=== PATIENT | male | born 1970 | race Caucasian/White ===

== ENCOUNTER 2017-01-22 17:16 | Emergency (ER) | payer BC ==
[2017-01-23 18:10] VITALS: Wt 56.7 kg
== END 2017-01-22 20:06 | disposition home or self-care (01) ==
LOC: D.ER 17:16
DX: Z20.3 Contact with and (suspected) exposure to rabies (principal)

== ENCOUNTER 2017-01-23 16:47 | Outpatient (CLI) | payer BC ==
[~2017-01-23] VITALS: Ht 167.6 cm; Wt 56.8 kg
[2017-01-23 18:10] VITALS: Ht 167.6 cm; Wt 56.8 kg
== END 2017-01-23 19:00 | disposition home or self-care (01) ==
LOC: D.OPS 16:47
DX: Z23 Encounter for immunization (principal)

== ENCOUNTER 2017-01-25 13:08 | Outpatient (CLI) | payer BC ==
[2017-01-23 18:10] VITALS: BMI 20.2
== END 2017-01-25 13:56 | disposition home or self-care (01) ==
LOC: D.OPS 13:08 → D.MS 13:12 → D.OPS 13:56
DX: Z23 Encounter for immunization (principal)

== ENCOUNTER 2017-01-29 13:55 | Outpatient (CLI) | payer BC ==
[~2017-01-29] VITALS: Ht 167.6 cm; Wt 56.8 kg
[2017-01-29 14:50] VITALS: BP 124/63; Ht 167.6 cm; Wt 56.8 kg
== END 2017-01-29 15:29 | disposition home or self-care (01) ==
LOC: D.OPS 13:55
DX: Z23 Encounter for immunization (principal); Z20.3 Contact with and (suspected) exposure to rabies

== ENCOUNTER → 2017-02-05 19:49 | Outpatient (CLI) | payer BC ==
[~2017-02-05] VITALS: Ht 167.6 cm; Wt 56.8 kg
[2017-02-05 19:04] VITALS: BP 122/75; Ht 167.6 cm; Wt 56.8 kg
== END ==
LOC: D.OPS 17:00
DX: Z23 Encounter for immunization (principal); Z20.3 Contact with and (suspected) exposure to rabies